=== PATIENT | male | born 1975 | race Caucasian/White ===

== ENCOUNTER 2021-01-26 10:36 | Outpatient (REF) | payer OTHER, SELFPAY | END 2021-01-26 10:37 | disposition home or self-care (01) | LOC: HO.HMGCLDS 10:36 | PROVIDERS: Visit Provider Internal Medicine | DX: Z20.822 Contact with and (suspected) exposure to COVID-19 (principal) | CPT/HCPCS: U0003; U0005 ==

== ENCOUNTER → 2023-07-27 10:29 | Outpatient (BNVA) | payer OTHER, SELFPAY | PROVIDERS: Visit Provider Physician Assistant Medical | DX: M77.11 Lateral epicondylitis, right elbow (principal) | CPT/HCPCS: 99202 ==

== ENCOUNTER 2023-08-17 07:30 | Outpatient (RCR) | payer OTHER, SELFPAY ==
--- NOTE | 2023-08-17 10:16 | MHC.OT.DC ---
[address] [phone] F: [phone] Occupational Therapy Discharge Note Patient Name: Patrick Elkins Provider: Marta Adams PA-C Diagnosis: Right lateral epicondylitis Date of Evaluation: 07/29/23 Date of Discharge: 08/17/23 Treatments to Date: 6 Discharge Status: Independent with HEP Patient Elected to Stop Discharge Summary: Patrick was referred to OT w/ right lateral epicondylitis. He continues to have moderate pain in right lateral elbow, with some relief, but no significant gains with trial of dexamethasone or ultrasound over the past few weeks. 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 He is wearing CFB at work and has good follow through w/ HEP and good understanding of joint protection. At this time, worker's comp has denied claim as work injury and he declines continuing therapy therapy his personal insurance. I recommend cont w/ home program and goal of self management, he will reach out for further referrals if still w/ persistent pain after a couple months. Electronically Signed By: WENDI Glasgow/Lionel CHT Reviewed/agree with student documentation: Therapist: Please Sign and return to therapist, thank you for your referral.
== END 2023-08-17 13:47 | disposition home or self-care (01) ==
LOC: HO.OT 07:30
PROVIDERS: PCP Physician Assistant Medical; Visit Provider Physician Assistant Medical
DX: M77.11 Lateral epicondylitis, right elbow (principal)
CPT/HCPCS: 97033; 97035; 97110; 97140; 97166

== ENCOUNTER → 2023-08-19 08:00 | Outpatient (BNVA) | payer OTHER, SELFPAY | PROVIDERS: PCP Physician Assistant Medical; Visit Provider Internal Medicine | DX: M77.11 Lateral epicondylitis, right elbow (principal) | CPT/HCPCS: 99213 ==

== ENCOUNTER → 2023-09-14 14:08 | Outpatient (BNVA) | payer OTHER, SELFPAY | PROVIDERS: PCP Physician Assistant Medical; Visit Provider Physician Assistant Medical | DX: M77.11 Lateral epicondylitis, right elbow (principal) | CPT/HCPCS: 99213 ==

== ENCOUNTER → 2023-10-15 15:34 | Outpatient (BNVA) | payer OTHER, SELFPAY | PROVIDERS: PCP Physician Assistant Medical; Visit Provider Physician Assistant Medical | DX: M77.11 Lateral epicondylitis, right elbow (principal) | CPT/HCPCS: 99213 ==

== ENCOUNTER 2023-11-06 14:30 | Outpatient (RCR) | payer OTHER, SELFPAY ==
--- NOTE | 2023-09-29 16:18 | MHC.OT.EP ---
[address] [phone] Occupational Therapy Plan of Care Patient Name: Patrick Elkins Date of Evaluation: 09/29/23 Diagnosis: Pain Location: lateral side of R elbow Pain Score: 7 Pain Scale Used: Numeric (0 - 10) Aggravating Factors: Pt reports over the head reaching/ gripping , heavy lifting Alleviating Factors: Coban wraps of R elbow Assessment: Pt is a R hand dominant male who has been experiencing pain in his R elbow since April. He was previously a pt. of our clinic and was not able to continue therapy. He has returned to skilled OT therapy for increased pain free ROM, strength, and functional use of his dominant UE. 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 Thank you once again for your referral.
--- NOTE | 2023-10-01 07:59 | MHC.OT.EP ---
[address] [phone] Occupational Therapy Plan of Care Patient Name: Patrick Elkins Date of Evaluation: 09/29/23 Diagnosis: Pain Location: lateral side of R elbow Pain Score: 7 Pain Scale Used: Numeric (0 - 10) Aggravating Factors: Pt reports over the head reaching/ gripping , heavy lifting Alleviating Factors: Coban wraps of R elbow Assessment: Pt is a R hand dominant male who has been experiencing pain in his R elbow since April. He was previously a pt. of our clinic and was not able to continue therapy. He has returned to skilled OT therapy for increased pain free ROM, strength, and functional use of his dominant UE. 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 Thank you once again for your referral.
== END 2023-11-06 15:14 | disposition home or self-care (01) ==
LOC: HO.OT 14:30
PROVIDERS: PCP Physician Assistant Medical; Visit Provider Physician Assistant Medical
DX: M77.11 Lateral epicondylitis, right elbow (principal)
CPT/HCPCS: 97110; 97140; 97165

== ENCOUNTER → 2023-11-09 10:49 | Outpatient (BNVA) | payer OTHER, SELFPAY | PROVIDERS: PCP Physician Assistant Medical; Visit Provider Physician Assistant Medical | DX: M77.11 Lateral epicondylitis, right elbow (principal) | CPT/HCPCS: 99213 ==

== ENCOUNTER 2023-11-13 19:20 | Outpatient (REF) | payer OTHER, SELFPAY ==
--- NOTE | ~2023-11-13 | MR_ITS ---
EXAMINATION: MR ELBOW WITHOUT CONTRAST, RIGHT CLINICAL INFORMATION: Persistent right lateral epicondylitis. COMPARISON: None available. TECHNIQUE: MRI of the elbow was performed using routine sequences on a high-field scanner. FINDINGS: LIGAMENTS: Ulnar Collateral Ligament: Intact. Radial Collateral Ligament: The radial collateral ligament is mildly edematous posteriorly, potentially due to a mild sprain. No discrete tears. TENDONS AND MUSCLES: Common Flexor: Intact. Common Extensor: Moderate tendinosis at the origin without an appreciable surfacing tear. Biceps: Intact. Brachialis: Intact. Triceps: Intact. BONE and ARTICULAR CARTILAGE: Small chondral fissure at the trochlear ridge. Articular cartilage is otherwise normal. Marrow signal is normal. No fracture or malalignment. NERVES: Ulnar nerve is normal in appearance. JOINT FLUID: No effusion or loose body. SOFT TISSUES: Unremarkable. MR/MR elbow RT wo con IMPRESSION: 1. Moderate common extensor tendinosis. No tears. 2. Mild edema signal in the radial collateral ligament could be due to a sprain or reactive edema related to the overlying tendinosis. 3. Small chondral fissure at the trochlear ridge.
== END 2023-11-13 19:21 | disposition home or self-care (01) ==
LOC: HO.MRI 19:20
PROVIDERS: PCP Physician Assistant Medical; Visit Provider Internal Medicine
DX: M77.11 Lateral epicondylitis, right elbow (principal)
CPT/HCPCS: 73221

== ENCOUNTER → 2023-12-01 14:14 | Outpatient (BNVA) | payer OTHER, SELFPAY | PROVIDERS: PCP Physician Assistant Medical; Visit Provider Physician Assistant Medical | DX: M77.11 Lateral epicondylitis, right elbow (principal) | CPT/HCPCS: 99213 ==

== ENCOUNTER 2024-08-20 09:17 | Outpatient (AMB) | payer OTHER, SELFPAY ==
--- OUTSIDE RECORDS SUMMARY | 2024-08-20 09:19 | XMS_ITS | Clinical Summary ---
Author Organization [facility] Address [address] [place] [address] Care Team Providers Care Fiscal Officer Name Role Phone Main Story Primary Care Provider [phone] Allergies Active Allergy Reactions Criticality Noted Date Comments Other 02/09/2012 Medications multivitamin (MULTIPLE VITAMINS ORAL) Take by mouth. Active albuterol HFA (PROAIR HFA ; PROVENTIL HFA ; VENTOLIN HFA) 90 mcg/actuation inhaler Inhale 2 Puffs into the lungs every 4 hours as needed for Cough or Wheezing. 11/09/19 22 Active amitriptyline (ELAVIL) 25 mg tablet Take 1 Tablet by mouth at bedtime. 01/18/20 24 Active aspirin-acetamin ophen-caffeine (EXCEDRIN MIGRAINE) 250-250-65 mg per tablet Take 1 tablet by mouth every 6 (six) hours if needed. Active beclomethasone dipropionate (Qvar RediHaler) 80 mcg/actuation HFA aerosol breath activated inhaler Inhale 2 Puffs into the lungs 2 times daily. Active buPROPion XL (WELLBUTRIN XL) 150 mg 24 hr tablet Take 1 tablet (150 mg total) by mouth 1 (one) time each day in the morning. 03/07/20 24 Active butalbital-aceta minophen-caffein e 50-300-40 mg capsule Take by mouth. Active cetirizine (ZyrTEC) 10 mg tablet Take 1 tablet (10 mg total) by mouth 1 (one) time each day. 03/08/20 24 Active cholecalciferol (VITAMIN D-3) 50 mcg (2,000 unit) tablet Take 1 tablet (2,000 Units total) by mouth 1 (one) time each day. 01/18/20 24 Active citalopram (CeleXA) 40 mg tablet Take 1 tablet (40 mg total) by mouth 1 (one) time each day in the morning. 10/13/19 24 Active diclofenac (VOLTAREN) 1 % topical gel Apply 1 g topically 2 times daily. 07/09/19 24 Active divalproex (DEPAKOTE ER) 250 mg 24 hr tablet 06/03/19 24 Active fluticasone propionate (FLONASE) 50 mcg/actuation nasal spray 1 pump in each nostril each morning 02/25/20 23 Active lidocaine (LIDODERM) 5 % patch APPLY 1 PATCH TOPICALLY ONCE DAILY. LEAVE ON THE MOST PAINFUL AREA ONCE DAILY FOR UP TO 12 HOURS 09/14/19 24 Active rizatriptan (MAXALT) 10 mg tablet 09/16/19 24 Active tiZANidine (ZANAFLEX) 2 mg tablet Take 1 Tablet by mouth every 8 hours as needed for Other (pain/ spasm). 07/16/19 23 Active tiZANidine (ZANAFLEX) 4 mg capsule Take 1 Capsule by mouth 3 times daily. Active albuterol HFA (PROAIR HFA ; PROVENTIL HFA ; VENTOLIN HFA) 90 mcg/actuation inhaler Inhale 2 puffs by mouth every 6 (six) hours if needed for wheezing or shortness of breath. 1 each 05/09/20 24 025 Active omeprazole (PriLOSEC) [address] capsule TAKE 1 CAPSULE BY MOUTH TWO TIMES A DAY BEFORE BREAKFAST AND DINNER ON EMPTY STOMACH AND WAIT 30 MINUTES BEFORE EATING 180 capsule 2 08/17/19 25 Active omeprazole (PriLOSEC) [address] capsule Take 1 Capsule by mouth 2 times daily (before meals). Take on empty stomach, wait 30 minutes and then eat to activate medication-be fore breakfast and before dinner 08/14/19 24 025 Discontinued Active Problems Problem Noted Date Diagnosed Date Varicose veins of both lower extremities 022 Anxiety and depression 09/08/2019 Diffuse nontoxic goiter 06/10/2019 Overview (03/28/2024): S/p US 05/2019 Vitamin D insufficiency 06/04/2019 Internal hemorrhoid 06/03/2019 Overview (03/28/2024): S/p CNSP 2019 Normocytic anemia 12/08/2017 Allergic rhinitis 06/04/2017 Chronic sinusitis 06/04/2017 Lumbar disc herniation with radiculopathy 2006 Overview (03/28/2024): Follows with physiatry Migraine 09/11/2006 Overview (03/28/2024): Ct Head 04/29/02, [facility] un[facility]able, sinus CT remarkable for sinusitis left maxillary and thickening right maxillary sinus Follows with [facility] Neurology Encounters Date Type Department Care Team Description 06/02/2024 Telephone Pulmonol - [place] [address] [facility] [address] [place] [address] Christine England MD Prior authorization 05/24/2024 Telephone Adult Medicine [address] [phone] Leda Whitman MA Prior Authorization (Bupropion ER 150mg) from Last 3 Months Immunizations Name Administration Dates Next Due Anthrax 12/30/2003, 4,09/23/2002,04/16,09/28/1999,09/14/1999 DTP 07/09/1977 Hepatitis A Adult (Havrix; V aqta) 19yo and older 01/04/2000,05/18/1999 Hepatitis B (Lwxxhzd-P-Htpln , Recombivax HB-Adult) 19yo and older 05/22/2012,12/20/2011,08/11/2011 Influenza Quadravalent, MDCK , 0.5ml, preservative free (Flucelvax) 6mo and older 02/24/2023 Influenza trivalent, 0.5mL, preservative free (Fluarix; FluLaval; Fluzone) ages 6mo and older (Afluria) 3 years and older 03/12/2013,04/19/2010 MMR, measles mumps and rubel la Live (Priorix; M-M-R II) 12mo and older 03/11/1990,05/11/1975 Meningococcal MCV4P 09/15/1999 Moderna SARS-CoV-2 COVID-19, mRNA, LNP-S, preservative free 08/19/2020,07/22/2020 OPV 11/08/1992,07/09/1977 PPD Test 11/08/1984 Pfizer SARS-CoV-2 COVID-19, mRNA, LNP-S, preservative free 07/21/2021 Smallpox 07/17/2002 Td Tetanus diptheria (Tdvax) 7yo and older 12/20/2011,10/09/1998,11/08/1992,11/08 Typhoid VICPS (Typhim Vi) 2y o and older 12/30/2003,10/30/2001,09/14/1999,10/09 Yellow Fever (YF-VAX) 9mo and older 08/09/1993 Surgical History Surgery Date Site/Laterality Comments HAND SURGERY PROCEDURE: HISTORICAL HAND SURGERY; COMMENT: right z plasty VASECTOMY PROCEDURE: NV VASECTOMY UNI/BI SPX W/POSTOP SEMEN EXAMS OTHER SURGICAL HISTORY Right PROCEDURE: ARTHROSCOPY SHOULDER SURGI COLONOSCOPY 02/15/2018 PROCEDURE: HISTORICAL COLONOSCOPY; COMMENT: normal OTHER SURGICAL HISTORY PROCEDURE: OUTSIDE ENDOSCOPY; COMMENT: dr. parra normal Medical History Medical History Date Comments Allergic rhinitis 06/04/2017 DX:Allergic rh initis Chronic sinusitis 06/04/2017 DX:Chronic sin usitis Migraine 09/11/2006 DX:Migraine; COM MENT: Ct Head 04/29/02, [facility], sinus CT remarkable for sinusitis left maxillary and thickening right maxillary sinus Follows with [facility] Lumbar disc herniation with radiculopathy 09/11/2006 DX:Lumbar disc herniation wi th radiculopathy; COMMENT: Follows with physiatry Normocytic anemia 12/08/2017 DX:Normocytic anemia History of COVID-19 03/07/2022 DX:History o f COVID-19 Esophageal reflux DX:Esophageal reflux Family History Medical History Relation Name Comments Breast cancer Aunt maternal Diabetes Father Hyperlipidemia Father HTN Other: skin cancer Father Other: thyroid cancer Father Breast cancer Maternal Grandmother Hyperlipidemia Mother HTN Other: smoker Paternal Grandmother Autoimmune disease Neg Hx Colon cancer Neg Hx Coronary artery disease Neg Hx Heart attack Neg Hx Heart failure Neg Hx Hyperlipidemia Neg Hx Hypertension Neg Hx Mental illness Neg Hx Prostate cancer Neg Hx Sleep apnea Neg Hx Thyroid disease Neg Hx Relation Name Status Comments Aunt Brother 1 Alive healthy Brother 2 Alive lactose intoler ance Daughter 1 Alive healthy Daughter 2 Alive healthy Father Alive DM, thyroid can cer age 73 Maternal Grandfather cancer unknown Maternal Grandmother Alive breast cancer, bypass Mother Alive healthy Paternal Grandfather Paternal Grandmother lung ca ncer Social History Tobacco Use Types Packs/Day Years Used Date Smoking Tobacco: Never Smokeless Tobacco: Never Tobacco Cessation:Counseling Given: Not Answered Alcohol Use Standard Drinks/Week Comments Yes 0 (1 standard drink = 0.6 oz pur e alcohol) Sex and Gender Information Value Date Recorded Sex Assigned at Not on file Legal Sex Male 5:39 PM EST Gender Identity Not on file Sexual Orientation Not on file Obstetrics History Last Filed Vital Signs Vital Sign Reading Time Taken Comments Blood Pressure 96/65 05/09/2024 8:19 AM EST Pulse 88 05/09/2024 8:19 AM EST Temperature 35.7 ??C (96.3 ??F) 05/09/2024 8:19 AM ES T Respiratory Rate 18 05/09/2024 8:19 AM EST Oxygen Saturation 98% 05/09/2024 8:19 AM EST Inhaled Oxygen Concentration - - Weight 81.6 kg (180 lb) 05/09/2024 8:19 AM EST Height 177.8 cm (5' 10 ) 05/09/2024 8:19 AM EST Body Mass Index 25.83 05/09/2024 8:19 AM EST Plan of Treatment Upcoming Encounters Date Type Department Care Team (Late st Contact Info) Description 09/15/2024 1:00 PM EDT Office Visit Pulmonolgy - [place] [facility] [address] [place] [phone] Christine England MD [address] [address] Health Maintenance Due Date Last Done Comments IPV Vaccines (3 of 3 - 4-dose series) 05/11/1993 11/08/1992, 07/09/1977 Depression Screening 04/12/2020 HIV Screening 04/12/2020 Social Influencers of Health Screening 04/12/2020 Pneumococcal Vaccine: 50+ Years (1 of 1 - PCV) 2023 Zoster Vaccines (2 of 2) 08/10/2023 06/15/2023 COVID-19 Vaccine (4 - season) 2024 07/21/2021, 08/19/2020, 07/22/2020 Cholesterol Screening (Lipid Panel) 04/30/2026 04/30/2021 Colorectal Cancer Screening: Colonoscopy 02/16/2028 02/15/2018 DTaP,Tdap,and Td Vaccines (9 - Td or Tdap) 07/22/2031 07/21/2021, 12/20/2011, 12/20/2011, Additional history exists MMR Vaccines Completed 03/11/1990, 05/11/1975 Meningococcal ACWY Vaccine Aged Out 09/15/1999 N o longer eligible based on patient's age to complete this topic Hepatitis A Vaccines Aged Out 01/04/2000, 05/18/19 00 No longer eligible based on patient's age to complete this topic Hepatitis B Vaccines Completed 05/22/2012, 12/20/2011, 10/20/2011, Additional history exists Hepatitis C Screening Completed 02/24/2023 Influenza Vaccine Completed 01/19/2024, , 02/20/2021, Additional history exists HIB Vaccines Aged Out No longer eligi ble based on patient's age to complete this topic HPV Vaccines Aged Out No longer eligi ble based on patient's age to complete this topic Meningococcal B Vaccine Aged Out No l onger eligible based on patient's age to complete this topic Pneumococcal Vaccine: Pediatrics (0 to 5 Years) and At-Risk Patients (6 to 64 Years) Aged Out No longer eligible based on patient's age to complete this topic RSV Immunization Patients Under 20 months Aged Out No longer eligible based on patient's age to complete this topic Varicella Vaccines Aged Out No longer eligible based on patient's age to complete this topic Procedures Procedure Name Priority Date/Time Associated Diagnosis Comments HM HEPATITIS C SCREENING Routine 02/24/2023 LIPID PANEL Routine 04/30/2021 COLONOSCOPY Routine 02/15/2018 from Last 3 Months or Most Recently Relevant to Health Maintenance Results * Hepatitis C Screening (02/24/2023) Pathologist [facility] Hepatitis C Screening abstracted [facility] Provider HEALTH MAINTENANCE Final Result * (ABNORMAL) Lipid panel (04/30/2021) [facility] LDL/HDL Ratio 6(A) <=4 Triglycerides 257(A) <=150 mg/dL Cholesterol 170 <=200 mg/dL HDL 27(A) >=39 mg/dL LDL Cholesterol 92 <=100 mg/dL Blood Venous blood specimen / Unknown [facility] Provider LAB BLOOD ORDERABLES Shahida l Result * Colonoscopy (02/15/2018) Pathologist [facility] Colonoscopy no interpretation , abstracted Anatomical Region Laterality Modality Other [facility] Provider HEALTH MAINTENANCE Final Result from Last 3 Months or Most Recently Relevant to Health Maintenance Insurance [facility] Care Teams Fiscal Officer Relationship Specialty Start Date End Date Main Story PA [address] [place] [id number] PCP - General Internal Medicine 09/13/20
--- OUTSIDE RECORDS SUMMARY | 2024-08-20 09:19 | XMS_ITS | Data Portability ---
Author Organization [facility], [facility] Address [address] [place] [address] Care Team Providers Care Patrol Community Service Officer Name Role Phone SIERRANEYDA Timmons Primary Care Provider JEROMY CATHERINE First Coat Operator Assessment No assessment recorded. Plan of Treatment Reminders Order Date Submit Date Provider Last Modified By Organization Details Last Modified Time Details Appointments None recorded. Lab None recorded. Referral occupatio nal therapist referral - RIGHT LATERAL EPICONDYL AR DEBRIDEME NT SX 04/19/24A CTIVE ROM AVOID STRAINING OF ELBOW 2023 024 [email or web address] Not available 11:10:59 Procedures None recorded. Surgeries None recorded. Imaging None recorded. Medication Orders None recorded. Patient TargetsNo targets recorded. Patient InstructionsNo instructions recorded. Reason for Referral Occupational Therapist Refer ral for Lateral epicondylitis of right humerus RIGHT LATERAL EPICONDYLAR DEBRIDEMENT SX 04/19/24ACTIVE ROM AVOID STRAINING OF ELBOW Referring Physician: Kimberly Felder, Orthopedic Surgery, Encounter Date: 04/29/2024 Procedures Surgical History Date Name Laterality Status Provider Name and Address Organization Details Recorded Time 04/19/20 Elbow Surgery completed RICHELLE FORRESTER [facility] 06/29/2024 10:15:40 12/14/19 24 JZCelestone Lat Epi completed Kj Self MD [address] [facility] [address], [place], [address], [facility] 12/16/2023 07:57:51 11/22/19 Shoulder Surgery completed RICHELLE FORRESTER [facility] 06/29/2024 10:15:40 Hand Surgery completed RICHELLE FORRESTER [place] [facility] [place] [facility] 06/29/2024 10:15:40 Imaging Results None recorded. Procedure Notes None recorded. Medical Equipment None Reported. Allergies No known drug allergies Medications Name Sig Start Date Stop Date Status Note LastModified by Organization Details LastModified Time verapamil ER (SR) 120 mg tablet,extend ed release TAKE 1 TABLET BY MOUTH EVERY DAY FOR 90 DAYS active Not Available Not Available No t Available citalopram 40 mg tablet active Not Available Not Available No t Available rizatriptan 10 mg tablet TAKE 1 TABLET BY MOUTH ONCE DAILY active Not Available Not Available No t Available butalbital-ac etaminophen-c affeine 50 mg-325 mg-40 mg tablet active Not Available Not Available No t Available amitriptyline 25 mg tablet TAKE 1 TABLET BY MOUTH AT BEDTIME active Not Available Not Available No t Available lidocaine 5 % topical patch APPLY 1 PATCH TOPICALLY ONCE DAILY. LEAVE ON THE MOST PAINFUL AREA ONCE DAILY FOR UP TO 12 HOURS active Not Available Not Available No t Available omeprazole 20 mg capsule,delay ed release active Not Available Not Available N ot Available albuterol sulfate HFA 90 mcg/actuation aerosol inhaler INHALE 2 PUFFS BY MOUTH EVERY 6 HOURS NEEDED FOR WHEEZING OR SHORTNESS OF BREATH active Not Available Not Available No t Available oxycodone 5 mg tablet Take 1 tablet every 6 hours by oral route as needed for 3 days. active Not Available Not Available No t Available divalproex ER 250 mg tablet,extend ed release 24 hr TAKE 1 TABLET BY MOUTH ONCE DAILY FOR 10 DAYS active Not Available Not Available No t Available bupropion HCl XL 150 mg 24 hr tablet, extended release TAKE 1 TABLET BY MOUTH ONCE DAILY IN THE MORNING active Not Available Not Available No t Available tizanidine active Not Available Not Av ailable Not Available Depakote active Not Available Not Avai lable Not Available Breo Ellipta 100 mcg-25 mcg/dose powder for inhalation INHALE 1 PUFF BY MOUTH ONCE DAILY active Not Available Not Available No t Available Qvar RediHaler 80 mcg/actuation HFA breath activated aerosol INHALE 2 PUFFS BY MOUTH TWICE DAILY active Not Available Not Available No t Available Paxlovid 300 mg (150 mg x 2)-100 mg tablets in a dose pack TAKE 3 TABLETS BY MOUTH TWICE A DAY FOR 5 DAYS active Not Available Not Available No t Available Vitals Date Recorded Body height Body mass index (BMI) Body weight Provider Name and Address Organization Details Last Updated DateTime 2024 177.8 cm 25.1 kg/m2 73822.66 g MELLISSANAHOMY COXALON [facility] 2024 13:36:54 Date Recorded Body height Body mass index (BMI) Body weight Provider Name and Address Organization Details Last Updated DateTime 03/18/2024 177.8 cm 25.1 kg/m2 31181.66 g RICHELLE FORRESTER [facility] 03/18/2024 14:16:18 Date Recorded Body height Body temperature Body mass index (BMI) Body weight Provider Name and Address Organization Details Last Updated DateTime 04/29/2024 177.8 cm 98.3 [degF] 25.1 kg/m2 75174.66 g KHANH CARROLL [facility] 04/29/2024 09:22:04 Date Recorded Body height Body mass index (BMI) Body weight Provider Name and Address Organization Details Last Updated DateTime 06/29/2024 177.8 cm 25.1 kg/m2 08570.66 g RICHELLE FORRESTER [facility] 06/29/2024 10:15:47 Date Recorded Body height Body mass index (BMI) Body weight Provider Name and Address Organization Details Last Updated DateTime 07/29/2024 177.8 cm 25.1 kg/m2 28860.66 g RICHELLE FORRESTER [facility] 07/29/2024 11:21:58 Social History Question Answer Notes LastModified by Organizat ion Details LastModified Time Tobacco Smoking Status Never Smoker RICHELLE chung [facility] 06/29/2024 10:15:40 How Many Times Per Week Do You Consume Alcohol? Less Than 1 Time Per Week [email or web address] Information not available 06/29/2024 Do You Or Have You Ever Used E-cigarettes Or Vape? Never Used Electronic Cigarettes [email or web address] Information not available 06/29/2024 What Is Your Relationship Status? [email or web address] Information not available 06/29/2024 Do You Use Any Illicit Or Recreational Drugs? No [email or web address] Information not available 06/29/2024 Do You Or Have You Ever Used Any Other Forms Of Tobacco Or Nicotine? No [email or web address] Information not available 06/29/2024 Sex: Unknown Functional Status None recorded. Mental Status None recorded. Family History Nothing Reported. Medical History No medical history recorded. Past Encounters Encounter ID Performer Location Encounter Start Date Encounter Closed Date Diagnosis/Indication Diagnosis SNOMED-CT Code Diagnosis ICD10 Code Diagnosis Note [id number] Kj Self MD [facility] [address] [place] [address] 12/14/2023 14:26:37 01/08/2024 09:57:48 Pain of right elbow joint 1772172933 8853540 M25.521 Lateral ep icondylitis of right humerus 4420925583 81227 M77.11 [id number] Abhinav Stahl PA-C [facility] [address] [place] [address] 2024 13:25:00 03/04/2024 09:32:36 [id number] Kj Self MD [facility] [address] [place] [address] 03/18/2024 14:08:29 04/17/2024 17:02:36 Lateral epicondylitis of right humerus 7284684455 97072 M77.11 [id number] Kimberly Felder, [facility] [address] [place] [address] 04/29/2024 08:54:44 05/24/2024 11:10:59 Lateral epicondylitis of right humerus [id number] 78321 M77.11 [id number] Kj Self MD [facility] [address] [place] [address] 06/29/2024 09:47:41 07/20/2024 16:46:35 Lateral epicondylitis of right humerus [id number] 06724 M77.11 [id number] Kj Self MD [facility] [address] [place] [address] 07/29/2024 11:10:09 08/17/2024 14:59:30 Lateral epicondylitis of right humerus 1479684493 05345 M77.11 Health Concerns Section Related Observation LastModified by Organization Detai ls LastModified Time None Recorded Concern Status LastModified by Organization Details LastModified Time None Recorded Advance Directives Directive None Recorded Payers Encounter Date Sequence Insurance Name Policy Number Policy Arce Covered Member ID Arce Member ID Guarantor Name [id number] [employer] - [employer]IC Garcia Queenie Elkins 03/18/2024 [employer] Arms Patrick Elkins 06/29/2024 [employer] Patrick Elkins 07/29/2024 [employer] Patrick Elkins Notes Date Note Type Note Provider Name and Address Organization Details Recorded Time 2024 text/html I am seeing the patient today under the supervision of dr noble who was available but who did not see the patient. DX: Right Lateral epicondylitis s/p cortisone injection 12/14/2023ortisone injectioin at [facility] 05/2023 HPI: 48-year-old male returns for reexamination. He last received a cortisone injection on December 14, [address] Self. This helped for 2 weeks. He continues to have pain with lifting pulling and pushing. He has performed physical therapy without relief in the past. Anti-inflammatories are ineffective. We did discuss PRP injections. Not sure if Worker's Compensation covers those injections. He will check. Ultimately is thinking about proceeding with the lateral epicondylar debridement Past family, medical, social history and review of systems has been reviewed, updated and is located in the patient? s chart. Examination: Alert and oriented ? ? 3 . No acute distress. Nonantalgic gait.Right Elbow reveals no soft tissue swelling. The patient is tender over the lateral epicondyle. Lateral elbow pain with wrist extension, resisted wrist extension and resisted forearm supination. No Tenderness medially or over the olecranon process. Left elbow ROM full. Full pronation/supination. No evidence of varus/valgus instability. No radiocapitellar crepitus. No medial or lateral epicondylar tenderness. No evidence for effusion, no evidence of mechanical symptoms or locking. Intact median, radial and ulnar nerve both motor and sensory function. Negative Tinel at the level of the elbow. X-rays ordered, obtained and reviewed at [facility] Impression/Plan: Findings and situation were discussed with the patient. Treatment options were discussed. Patient is going to check with Worker's Compensation to see if they cover PRP injections. If not he would like to proceed with a left lateral patellar debridement. He will continue with work restrictions. Abhinav Stahl PA-C [address], [place], [address], [facility] 2024 13:53:58 03/18/2024 text/html Diagnosis: Right lateral epicondylitisThe patient presents at his request. He continues to have pain over his right lateral elbow with grasp. The pain is sharp and moderate in severity. He has no numbness or tingling.Past family, medical, social history and review of systems has been reviewed, updated and is located in the patient? s chart.Examination: Healthy appearing patient in no apparent distress. Alert and oriented. Tender to palpation over his right lateral epicondyle. Pain in this region with resisted wrist extension with the elbow extended and flexed. No atrophy in either upper extremity. Brisk capillary refill in all digitsPlan: At the patient's request we discussed the nature of the surgery for lateral epicondylitis and risks including infection, injury to blood vessels, tendons, nerves, failure of procedure and stiffness in the elbow. All his questions are answered. He would like to proceed with a right lateral epicondylar debridement. Kj Self MD [address], [place], [address], [facility] 03/18/2024 15:12:46 04/29/2024 text/html Patrick is a 49-yea r-old who is here today for follow-up status post right lateral epicondylar debridement done by Dr. Self 04/19/2020 for overall he is progressing nicely good pain she is here today for follow-up Kimberly Felder CNP [address], [place], [address], [facility] 04/29/2024 10:12:54 06/29/2024 text/html Diagnosis: Statu s post right lateral epicondylar debridement The patient returns at our request. He is disappointed in the results of his surgery. He continues to have pain over his lateral elbow although improved from his preoperative status. Past family, medical, social history and review of systems has been reviewed, updated and is located in the patient? s chart. Examination: Healthy appearing patient in no apparent distress. Alert and oriented. He has full range of motion bilateral elbows and forearms. Provocative testing of both elbows reveals no instability. He does have discomfort with resisted wrist extension with the elbow extended. No atrophy in either upper extremity. Brisk capillary refill in all digits Plan: The patient and I discussed his situation at length. As he was working prior to his surgery and feels that he is somewhat better since his surgery I am puzzled by his assertion that he cannot work at all. We have agreed to return him to restricted duty while he continues his therapy. He will follow-up in 4 to 6 weeks for reevaluation or sooner if there are any concerns. Kj Self MD [address] [address], [place], [address], [facility] 07/04/2024 09:40:25 07/29/2024 text/html Diagnosis: Statu s post right lateral epicondylar debridement The patient returns at our request. He reports that he has had a dramatic improvement in his situation and is ready to return to full duty work. Past family, medical, social history and review of systems has been reviewed, updated and is located in the patient? s chart. Examination: Healthy appearing patient in no apparent distress. Alert and oriented. He has symmetric range of motion of his bilateral elbows and forearms. Provocative test the elbows reveals no instability. He has no pain with resisted wrist extension with the elbow extended. No atrophy in either upper extremity. Brisk capillary refill in all digits Plan: The patient has done well. I am returning him to full duty work and discharging him from care. He will follow-up at his discretion. Kj Self MD [address] [facility] [address], [place], [address], [facility] 07/29/2024 12:41:34
--- NOTE | 2024-08-20 10:11 | AM.OFFWIN_ITS ---
Intake Vital Signs 08/20/24 10:25 Height 5 ft 10 in Weight 180 lb BMI 25.8 BP 120/76 Blood Pressure Location Lt brachial Position Sitting Pulse 120 H Pulse Source Pulse Oximeter Temp 99.0 F Temp Source Oral Pulse Oximetry (%) 95 Oxygen Delivery Method Room Air Intake Visit Reasons: [employer] WORK[employer] Flu? Patient Tobacco Use Status: Never used Tobacco Allergies No Known Allergies Allergy (Verified 08/20/24 10:24) Do you need a note to return to daycare/school/sports/work: Yes HPI HPI Comments History of Present Illness Details Patrick presents with flu-like symptoms that started yesterday, including persistent cough, back pain, headache, and fever. He reports feeling like garbage and believes he may have the flu or possibly something worse. The patient's cough has been ongoing for a while, previously attributed to post- nasal drip, but has significantly worsened. The cough is sometimes productive and has become so severe that it has led to dry heaves and vomiting. Patrick mentions experiencing back pain, specifically in the kidney area, describing it as feeling like Torres Renee's been using it as a punching bag. He also complains of a pounding headache and reports that the back of his neck feels sweaty and clammy. Patrick has attempted to alleviate his symptoms with [id number] medications, including Tylenol, cold and flu medicine, and Nyquil, but states these have not been effective. His temperature was reported as 99?F, and his blood pressure was measured at 120/70-something, which he notes is higher than his usual readings of 90-something/70-something. The patient took a home COVID test yesterday, which was negative. He mentions experiencing some wheezing when breathing deeply. Patrick's symptoms appear to be impacting his overall well-being, as he emphasizes feeling unwell and describes his condition as garbage. PFSH Social History Patient Tobacco Use Status: Never used Tobacco Review of Systems Const Reports fatigue, Reports fever(s), Reports headache(s) and Reports malaise ENT Reports headache(s) Resp Reports chest congestion and Reports cough Neuro Reports headache(s) Endo Reports fatigue Physical Exam Vital Signs: Last Vital Signs Temp 99.0 F 08/20/24 10:25 Pulse 120 H 08/20/24 10:25 BP 120/76 08/20/24 10:25 Pulse Ox 95 08/20/24 10:25 Oxygen Delivery Method Room Air 08/20/24 10:25 BMI result Body Mass Index 25.8 Const General: cooperative, no acute distress and alert Orientation/consciousness: patient oriented x3 Limitations: no limitations HEENT Head: Yes normal to inspection Ears: hearing grossly normal bilaterally and external ears normal General nose exam: Normal external nose present Eyes General: appearance normal, both eyes and all related structures Neck Neck: Yes normal visual inspection Chest Chest palpation & inspection: normal inspection of the chest Resp Effort & Inspection: normal respiratory effort, able to speak in complete sentences and no audible wheezes Auscultation: clear to auscultation bilaterally Cardio Rate: regular rate Rhythm: regular rhythm GI Inspection: Yes normal to inspection Palpation (GI): Soft to palpation and nontender Skin General skin exam: no rashes or lesions noted Neuro General: patient oriented x3 Psych Appearance: grossly normal Mental Status: mental status grossly normal Speech and movement: Normal speech and movement present Affect: normal affect Attitude: cooperative Thought process: Normal thought process present Thought content: Normal thought content present Assessment & Plan Assessment & Plan (1) Flu-like symptoms: Code(s): R68.89 - Other general symptoms and signs Plan: Suspected Influenza: - Acute onset of flu-like symptoms including persistent cough, back pain, headache, and low-grade fever (99?F) - Symptoms started yesterday - History of chronic cough attributed to post-nasal drip, but current symptoms significantly worse - Home COVID-19 test negative yesterday - Physical examination revealed wheezing on auscultation - Blood pressure elevated at 120/70s, higher than usual 90s/70s - Clinical presentation consistent with influenza despite negative home COVID-19 test and lack of flu testing Plan: - Prescribe oseltamivir 75 mg PO BID for treatment of suspected influenza - Prescribe Tessalon Perles for cough management - Provided patient education on warning signs and symptoms - Follow up as needed if symptoms worsen or persist Medications: New oseltamivir 75 mg PO BID 10 caps 0RF 5 days benzonatate 200 mg PO TID 9 caps 0RF 3 days Coding Level of Care Code New Pt Level 4 (09808) Diagnoses Flu-like symptoms R68.89
[2024-08-20 10:25] VITALS: BP 120/76; PULSE 120; TEMP 37.2; O2SAT 95; BMI 25.8
== END 2024-08-20 10:58 | disposition home or self-care (01) ==
PROVIDERS: PCP Physician Assistant Medical; Visit Provider Physician Assistant
DX: R68.89 Other general symptoms and signs (principal)

== ENCOUNTER → 2024-08-20 09:17 | Outpatient (BNVA) | payer OTHER, SELFPAY | PROVIDERS: PCP Physician Assistant Medical | DX: Z13.89 Encounter for screening for other disorder (principal) ==

== ENCOUNTER 2025-02-20 08:46 | Outpatient (AMB) | payer OTHER, SELFPAY ==
--- OUTSIDE RECORDS SUMMARY | 2025-02-20 08:50 | XMS_ITS | Clinical Summary ---
Author Organization [facility] Address [address] [place] [address] Care Team Providers Care Poultry Packer Name Role Phone Main Story Primary Care Provider [phone] Allergies Active Allergy Reactions Criticality Noted Date Comments Other 02/09/2012 Medications multivitamin (MULTIPLE VITAMINS ORAL) Take by mouth. Active albuterol HFA (PROAIR HFA ; PROVENTIL HFA ; VENTOLIN HFA) 90 mcg/actuation inhaler Inhale 2 Puffs into the lungs every 4 hours as needed for Cough or Wheezing. 2 Active amitriptyline (ELAVIL) 25 mg tablet Take 1 Tablet by mouth at bedtime. 4 Active aspirin-acetamino phen-caffeine (EXCEDRIN MIGRAINE) 250-250-65 mg per tablet Take [...] (one) time each day in the morning. 4 Active butalbital-acetam inophen-caffeine 50-300-40 mg capsule Take by mouth. Activ e cetirizine (ZyrTEC) 10 mg tablet Take 1 tablet (10 mg total) by mouth 1 (one) time each day. 4 Active cholecalciferol (VITAMIN D-3) 50 mcg (2,000 unit) tablet Take 1 tablet (2,000 Units total) by mouth 1 (one) time each day. 4 Active citalopram (CeleXA) 40 mg tablet Take 1 tablet (40 mg total) by mouth 1 (one) time each day in the morning. 4 Active diclofenac (VOLTAREN) 1 % topical gel Apply 1 g topically 2 times daily. 4 Active divalproex (DEPAKOTE ER) 250 mg 24 hr tablet 4 Active fluticasone propionate (FLONASE) 50 mcg/actuation nasal spray 1 pump in each nostril each morning 3 Active lidocaine (LIDODERM) 5 % patch APPLY 1 PATCH TOPICALLY ONCE DAILY. LEAVE ON THE MOST PAINFUL AREA ONCE DAILY FOR UP TO 12 HOURS 4 Active rizatriptan (MAXALT) 10 mg tablet 4 Active tiZANidine (ZANAFLEX) 2 mg tablet Take 1 Tablet by mouth every 8 hours as needed for Other (pain/ spasm). 3 Active tiZANidine (ZANAFLEX) 4 mg capsule Take 1 Capsule by mouth 3 times daily. Active albuterol HFA (PROAIR HFA ; PROVENTIL HFA ; VENTOLIN HFA) 90 mcg/actuation inhaler Inhale 2 puffs by mouth every 6 (six) hours if needed for wheezing or shortness of breath. 1 each 4 05/09/20 25 Active omeprazole (PriLOSEC) [address] capsule TAKE 1 CAPSULE BY MOUTH TWO TIMES A DAY BEFORE BREAKFAST AND DINNER ON EMPTY STOMACH AND WAIT 30 MINUTES BEFORE EATING 180 capsule 2 5 Active fluticasone furoate-vilantero L (Breo Ellipta) 200-25 mcg/dose inhaler Inhale 1 puff by mouth 1 (one) time each day. 1 each 5 09/16/19 26 Active Active Problems Problem Noted Date Diagnosed Date [...] and thickening right maxillary sinus Follows with [facility] Neurology Immunizations Immunization Administration Dates Next Due Anthrax 12/30/2003, 4,09/23/2002,04/16,09/28/1999,09/14/1999 DTP 07/09/1977 Hepatitis A Adult (Havrix; V aqta) 19yo and older 01/04/2000,05/18/1999 Hepatitis B (Llrnyso-K-Zmktp , Recombivax HB-Adult) 19yo and older 05/22/2012,12/20/2011,08/11/2011 [...] free 08/19/2020,07/22/2020 OPV 11/08/1992,07/09/1977 PPD Test 11/08/1984 D2S SARS-CoV-2 COVID-19, mRNA, LNP-S, preservative free 07/21/2021 Smallpox 07/17/2002 Td Tetanus diptheria (Tdvax) 7yo and older 12/20/2011,10/09/1998,11/08/1992,11/08 Typhoid VICPS (Typhim Vi) 2y o and older 12/30/2003,10/30/2001,09/14/1999,10/09 Yellow Fever (YF-VAX) 9mo and older 08/09/1993 Surgical History Surgery Date Site/Laterality Comments HAND SURGERY PROCEDURE: HISTORICAL HAND SURGERY; COMMENT: right z plasty VASECTOMY PROCEDURE: WI VASECTOMY UNI/BI SPX W/POSTOP SEMEN EXAMS OTHER [...] Sign Reading Time Taken Comments Blood Pressure 110/76 09/15/2024 12:56 PM EDT Pulse 60 09/15/2024 12:56 PM EDT Temperature 36.3 C (97.3 F) 09/15/2024 12:56 PM EDT Respiratory Rate 18 05/09/2024 8:19 AM EST Oxygen Saturation 97% 09/15/2024 12:56 PM EDT Inhaled Oxygen Concentration - - Weight 80.4 kg (177 lb 3.2 oz) 09/15/2024 12:56 PM EDT Height 177.8 cm (5' 10 ) 09/15/2024 12:56 PM EDT Body Mass Index 25.43 09/15/2024 12:56 PM EDT Plan of Treatment Health Maintenance Due Date Last Done Comments IPV Vaccines (3 of 3 - 4-dose series) 05/11/1993 11/08/1992, 07/09/1977 HIV Screening 04/12/2020 Social Influencers of Health Screening 04/12/2020 Pneumococcal Vaccine: 50+ Years (1 of 1 - PCV) 2023 Depression Screening 05/11/2024 COVID-19 Vaccine ( - season) 2025 07/21/2021, 08/19/2020, 07/22/2020 Influenza Vaccine (#1) 2025 , 02/24/2023, 02/20/2021, Additional history exists Cholesterol Screening (Lipid Panel) 04/30/2026 04/30/2021 Colorectal Cancer Screening: Colonoscopy 02/16/2028 02/15/2018 DTaP,Tdap,and Td Vaccines (9 - Td or Tdap) 07/22/2031 07/21/2021, 12/20/2011, 12/20/2011, Additional history exists RSV Immunization Adult Patients (1 - 1-dose 75+ series) 02/06/2048 MMR Vaccines Completed 03/11/1990, 05/11/1975 Meningococcal ACWY Vaccine Aged Out 09/15/1999 N o longer eligible based on patient's age to complete this topic Hepatitis A Vaccines Aged Out 01/04/2000, 05/18/19 00 No longer eligible based on patient's age to complete this topic Hepatitis B Vaccines Completed 05/22/2012, 12/20/2011, 10/20/2011, Additional history exists Hepatitis C Screening Completed 02/24/2023 Zoster Vaccines Completed 06/30/2024, 06/15/2023 HIB Vaccines Aged Out No longer eligi [...] Procedure Name Priority Date/Time Associated Diagnosis Comments HEPATITIS C SCREENING Routine 02/24/2023 LIPID PANEL Routine 04/30/2021 COLONOSCOPY Routine 02/15/2018 from Last 3 Months or Most Recently Relevant to Health Maintenance Results * Hepatitis C Screening (02/24/2023) Hepatitis C Screening abstracted Historical Provider HEALTH MAINTENANCE Final Result * (ABNORMAL) Lipid panel (04/30/2021) LDL/HDL Ratio 6(A) <=4 Triglycerides 257(A) <=150 mg/dL Cholesterol 170 <=200 mg/dL HDL 27(A) >=39 mg/dL LDL Cholesterol 92 <=100 mg/dL Blood Venous blood specimen / Unknown us Historical Provider LAB BLOOD ORDERABLES Shahida l Result * Colonoscopy (02/15/2018) HM Colonoscopy no interpretation , abstracted Anatomical Region Laterality Modality Other us Historical Provider HEALTH MAINTENANCE Final Result from Last 3 Months or Most Recently Relevant to Health Maintenance Insurance [employer] [facility] Care Teams Poultry Packer Relationship Specialty Start Date End Date Main Story [address] [place] [address] PCP - General Internal Medicine 09/13/20
[2025-02-20 08:51] VITALS: BP 90/64; PULSE 78; RESP 18; TEMP 36.6; O2SAT 98; BMI 25.8
--- NOTE | 2025-02-20 08:51 | MHC.PC.OV ---
Vital Signs 02/20/25 08:51 Height 5 ft 10 in Intake Visit Reasons: EP-b/l shoulder pain and lumbar back pain Allergies No Known Allergies Allergy (Verified 08/20/24 10:24) PFSH Medical History (Updated 12/02/24 @ 11:18 by Florina Cronin [facility]) GERD (gastroesophageal reflux disease) Depression Migraine without aura Social History Patient Tobacco Use Status: Never used Tobacco Physical exam (Primary Care) Tobacco/Smoking Status: Tobacco use Status Patient Tobacco Use Status Never used Tobacco 08/20/24 10:19 Coding
--- NOTE | 2025-02-20 09:00 | MHC.OFFWIV ---
Intake Vital Signs 02/20/25 08:51 Height 5 ft 10 in Weight 180 lb BMI 25.8 BP 90/64 Blood Pressure Location Lt brachial Position Sitting Respiration 18 Pulse 78 Pulse Source Pulse Oximeter Temp 97.8 F Temp Source Oral Pulse Oximetry (%) 98 Oxygen Delivery Method Room Air Intake Visit Reasons: EP-b/l shoulder pain and lumbar back pain Patient Tobacco Use Status: Never used Tobacco Allergies No Known Allergies Allergy (Verified 02/20/25 09:01) HPI HPI Comments History of Present Illness Details 50 y/o Male patient who presents to the walk in clinic with c/o chronic Lower back pain radiating down to both his LE Since Thursday. Reports chronic Back pain - he did injure his back 2003 at work. He had MRI many years ago that showed Disk Bulgind at L1 - S2. He does take Tizanidine 2 - 4mg Twice a Day with no relief. He has tried Acetaminophen, Ibuprofen and Lidocaine patches with no relief. In the past he was successful with Steroid Back injections and Today wondering if we could give him a dose. Reports that pain worse with movement, bending or going up/down stairs. Denies numbness or tingling. Denies bowel or bladder symptoms. [facility] Medical History (Updated 02/20/25 @ 09:48 by Yen Whitlock NP) Lumbago with sciatica GERD (gastroesophageal reflux disease) Depression Migraine without aura Social History Patient Tobacco Use Status: Never used Tobacco Review of Systems Const All systems reviewed & are unremarkable except as noted in HPI and below Physical Exam Vital Signs: Last Vital Signs Temp 97.8 F 02/20/25 08:51 Pulse 78 02/20/25 08:51 Resp 18 02/20/25 08:51 BP 90/64 02/20/25 08:51 Pulse Ox 98 02/20/25 08:51 Oxygen Delivery Method Room Air 02/20/25 08:51 BMI result Body Mass Index 25.8 Const General: no acute distress; No comfortable Nutritional Appearance: well nourished Orientation/consciousness: patient oriented x3 Back/Spine/Pelvis Back: back tenderness Thoracic/Lumbar Spine: pain with thoraco-lumbar ROM, paraspinal muscle tenderness and lumbar spinal tenderness at L1, at L2, at L3, at L4 and at L5 Neuro Other: Walks with a limp due to pain. General: patient oriented x3 and moves all extremities Psych Speech and movement: Normal speech and movement present Assessment & Plan Assessment & Plan (1) Lumbago with sciatica: Code(s): M54.40 - Lumbago with sciatica, unspecified side Qualifiers: Chronicity: chronic Back pain laterality: midline Sciatica laterality: bilateral sciatica Qualified Code(s): M54.41 - Lumbago with sciatica, right side; M54.42 - Lumbago with sciatica, left side; G89.29 - Other chronic pain Plan: Advised to use Ice/Hot Ordered Diclofenac for pain relief Advised him to [facility]. Medications: New diclofenac potassium 50 mg PO BID 14 tabs 0RF 7 days G89.29 - Other chronic pain, M54.41 - Lumbago with sciatica, right side, M54.42 - Lumbago with sciatica, left side Coding Level of Care Code Est Pt Level 4 (07507) Diagnoses Chronic midline low back pain with bilateral sciatica M54.41; M54.42; G89.29 Chronicity: chronic Back pain laterality: midline Sciatica laterality: bilateral sciatica Time Spent (min) 20
== END 2025-02-20 09:48 | disposition home or self-care (01) ==
PROVIDERS: PCP Physician Assistant Medical; Visit Provider Nurse Practitioner Family
DX: M54.41 Lumbago with sciatica, right side (principal); M54.42 Lumbago with sciatica, left side; G89.29 Other chronic pain

== ENCOUNTER 2025-03-07 15:24 | Outpatient (AMB) | payer OTHER, SELFPAY ==
--- NOTE | 2025-03-07 15:43 | A.OFFVIS_ITS ---
Intake Visit Reasons: 6m Allergies No Known Allergies Allergy (Verified 03/07/25 15:47) Medication List - Last Reconciled 03/07/25 by Magui Edward CNP albuterol sulfate 90 mcg/actuation inhalation bupropion HCl XL 150 mg PO QAM [id number]-odqatjosuegrr-uuss 50-325-40 mg 1 tab PO BID PRN cetirizine 10 mg PO DAILY PRN citalopram 20 mg PO DAILY dextrin (Clear Fiber) PO diclofenac potassium 50 mg PO BID 7 days divalproex ER 250 mg PO DAILY 90 days fluticasone furoate-vilanterol 100-25 mcg/dose (Breo Ellipta) 1 ea inhalation DAILY lidocaine 5% 1 patch topical DAILY [place] oleifera mg PO DAILY omeprazole 20 mg PO BID rizatriptan mg PO sumatriptan succinate take 1 tab at onset of headache; if no relief may repeat 1 tab after at least 2 hrs; max = 4 tabs/24 hr PO tizanidine 2 mg PO DAILY PRN HPI Comments Details: 49 y/o man with depression, GERD and migraine headaches. He was having more headaches over the last few months. Headaches were happening more often, about 3x/week, but were not as severe as before. He was using seven triptan or rizatriptan or butalbital as needed which helped some. He preferred sumatriptan to rizatriptan, but butalbital as needed seemed to work best. Sleep was okay. [facility] Medical History (Updated 03/07/25 @ 15:44 by Magui Edward CNP) Lumbago with sciatica GERD (gastroesophageal reflux disease) Depression Migraine without aura Social History Patient Tobacco Use Status: Never used Tobacco Review of Systems Const Denies chills, Denies daytime sleepiness, Reports difficulty sleeping, Denies fatigue, Denies fever(s), Denies frequent falls, Reports headache(s), Denies increased appetite, Denies poor appetite, Denies snoring, Denies weakness, Denies weight gain and Denies weight loss Eyes Denies loss of vision ENT Denies vertigo, Denies dizziness and Reports headache(s) Card Denies chest pain at rest, Denies chest pain with activity, Denies syncope, Denies leg edema and Denies palpitations Resp Denies snoring GI Denies constipation, Denies heartburn, Denies diarrhea and Denies nausea Denies urinary frequency, Denies urinary incontinence and Denies urinary urgency Musc Denies abnormal gait, Denies numbness and Denies tingling Skin/Breast Denies dry skin and Denies rash Neuro Denies abnormal gait, Denies vertigo, Denies dizziness, Denies syncope, Denies frequent falls, Reports headache(s), Denies lack of coordination, Denies loss of vision, Denies memory loss, Denies numbness, Denies restless legs, Denies seizure-like activity, Denies tingling, Denies paresthesias, Denies tremor(s) and Denies weakness Psych Denies anxiety, Denies depression, Denies auditory hallucinations, Denies memory loss, Denies visual hallucinations and Denies suicidal ideation Endo Denies fatigue and Denies palpitations Physical Exam Const Other: General Appearance:? normal, in no acute distress. Skin:? no rashes, no significant birthmarks. Heart:? S1, S2 normal, no murmurs. Lungs:? clear anteriorly and posteriorly. Extremities:? no edema. Psych:? alert, oriented, cognitive function intact, cooperative with exam. Neuro Other: Mental Status:?Normal attention, orientation, memory and affect.? Cranial Nerves:?Pupils are equal, round and reactive to light. External occular muscles are intact. Visual mcleod are full. Face is symmetrical. Facial sensations are normal. Tongue is midline. Palate elevates symmetrically. Shoulder shrugging is normal. Hearing to bedside conversation is normal. Sensory Exam:?....? Coordination:?No ataxia,?no titubation.? Gait Exam: Within normal limits. Extrapyramidal System:?No tremor, rigidity with normal facial expressions.? Pronator Drift:?Not present.? Involuntary Movements:?No tremors seen.? Speech:?Normal.? Assessment & Plan Assessment & Plan (1) Migraine without aura: Code(s): G43.009 - Migraine without aura, not intractable, without status migrainosus Category: Medical Qualifiers: Status migrainosus presence: without status migrainosus Intractability: not intractable Qualified Code(s): G43.009 - Migraine without aura, not intractable, without status migrainosus Plan: Increase Depakote ER 250mg 1 tablet twice a day. Start sumatriptan 50mg 1 tablet as needed for migraine. Continue [id number]-WBXY-flud 50-325-40mg 1-2 tablets as needed for headache #10 for 30 days. Do not use as needed medications (including OTC analgesics) more than 2-3x/week. Plan Meds tried: propranalol, sumatriptan, amitryptiline, fiorecet, flexeril, topamax, verapamil Medications: New sumatriptan succinate take 1 tab at onset of headache; if no relief may repeat 1 tab after at least 2 hrs; PO 10 tabs 5RF 30 days Changed From dlufzsauwj-lbahiupnuqxpa-bmdo 50-325-40 mg 1 tab PO BID PRN To gyvldxyltg-vjppatvmgkzwd-beqx 50-325-40 mg 1 tab PO DAILY PRN 10 tabs 2RF headache 30 days From divalproex ER 250 mg PO DAILY 90 days 90 tabs 1RF To divalproex ER 250 mg PO BID 180 tabs 1RF 90 days Coding Level of Care Code Est Pt Level 4 (80045) Diagnoses Migraine without aura and without status migrainosus, not intractable G43.009 Status migrainosus presence: without status migrainosus Intractability: not intractable
--- OUTSIDE RECORDS SUMMARY | 2025-03-07 19:47 | XMS_ITS | Data Portability ---
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 Plan of Treatment Reminders Order Date Submit Date Provider Last Modified By Organization Details Last Modified Time Details Appointments None recorded. Lab None recorded. Referral occupatio nal therapist referral - RIGHT LATERAL EPICONDYL AR DEBRIDEME NT SX 04/19/24 ACTIVE ROM AVOID STRAINING OF ELBOW 2023 024 [email or web address] Not available 11:10:59 Procedures None recorded. Surgeries None recorded. Imaging None recorded. Medication Orders None recorded. Patient TargetsNo targets recorded. Patient InstructionsNo instructions recorded. Reason for Referral Occupational Therapist Refer ral for Right lateral elbow tendinopathy RIGHT LATERAL EPICONDYLAR DEBRIDEMENT SX 04/19/24ACTIVE ROM AVOID STRAINING OF ELBOW Referring Physician: Kimberly Felder, Orthopedic Surgery, Encounter Date: 04/29/2024 Procedures Surgical History Date Name Laterality Status Provider Name and Address Organization Details Recorded Time 04/19/20 Elbow Surgery completed RICHELLE FORRESTER [facility] 06/29/2024 10:15:40 12/14/19 24 JZCelestone Lat Epi completed Kj Self MD [address] [facility] [address], [place], [address], [facility] 12/16/2023 07:57:51 11/22/19 14 Shoulder Surgery completed RICHELLE FORRESTER [facility] 06/29/2024 10:15:40 Hand Surgery completed RICHELLE FORRESTER [place] - [facility] 06/29/2024 10:15:40 Imaging Results [...] Updated DateTime 06/29/2024 177.8 cm 25.1 kg/m2 50341.66 g RICHELLEElton MARIEFORRESTER [facility] 06/29/2024 10:15:47 Date Recorded Body height Body mass index (BMI) Body weight Provider Name and Address Organization Details Last Updated DateTime 07/29/2024 177.8 cm 25.1 kg/m2 37371.66 ari RICHELLE FORRESTER [facility] 07/29/2024 11:21:58 Date Recorded Body height Body mass index (BMI) Body weight Provider Name and Address Organization Details Last Updated DateTime 2024 177.8 cm 25.1 kg/m2 35879.66 g VIANEY CHI [facility] 2024 13:36:54 Date Recorded Body height Body mass index (BMI) Body weight Provider Name and Address Organization Details Last Updated DateTime 03/18/2024 177.8 cm 25.1 kg/m2 62158.66 g RICHELLE FORRESTER [facility] 03/18/2024 14:16:18 Date Recorded Body height Body temperature Body mass index (BMI) Body weight Provider Name and Address Organization Details Last Updated DateTime 04/29/2024 177.8 cm 98.3 [degF] 25.1 kg/m2 90567.66 g KHANH CARROLL [facility] 04/29/2024 09:22:04 Social History Question Answer Notes LastModified by 911 View Details LastModified Time Tobacco Smoking Status Never Smoker RICHELLE chung [facility] 06/29/2024 10:15:40 What Is Your Relationship Status? [email or web address] Information not available 06/29/2024 Sex: Unknown Functional Status Question Answer Note LastModified by [employer] Details LastModified Time How many times per week do you consume alcohol? Less than 1 time per week [email or web address] Information not available 06/29/2024 Do you use any illicit or recreational drugs? No [email or web address] Information not available 06/29/2024 Do you or have you ever used any other forms of tobacco or nicotine? No [email or web address] Information not available 06/29/2024 Do you or have you ever used e-cigarettes or vape? Never used electronic cigarettes [email or web address] Information not available 06/29/2024 Mental Status None recorded. Family History Nothing Reported. Medical History No medical history recorded. Past Encounters Encounter ID Performer Location Encounter Start Date Encounter Closed Date Diagnosis/Indication Diagnosis SNOMED-CT Code Diagnosis ICD10 Code Diagnosis IMO Codes Diagnosis Note [id number] Kj Self MD [facility] [address] [place] [address] 12/14/2023 14:26:37 01/08/2024 09:57:48 Pain of right elbow joint 3704160367 4092473 M25.521 Right late ral elbow tendinopathy 0259696785 10816 M77.11 [id number] Abhinav Stahl PA-C [facility] [address] [place] [address] 2024 13:25:00 03/04/2024 09:32:36 [id number] MD [facility] [address] [place] [address] 03/18/2024 14:08:29 04/17/2024 17:02:36 Right lateral elbow tendinopathy 5843929733 40833 M77.11 [id number] Kimberly Felder, [facility] [address] [place] [address] 04/29/2024 08:54:44 05/24/2024 11:10:59 Right lateral elbow tendinopathy 9643034024 06350 M77.11 [id number] MD RA Donahue [facility] [address] [place] [address] 06/29/2024 09:47:41 07/20/2024 16:46:35 Right lateral elbow tendinopathy 0673854169 57723 M77.11 [id number] MD RA Donahue [facility] [address] [place] [address] 07/29/2024 11:10:09 08/17/2024 14:59:30 Right lateral elbow tendinopathy 3098429153 87612 M77.11 [id number] Health Concerns Section Related Observation LastModified by Organization Detdaniel ls LastModified Time None Recorded Concern Status LastModified by Organization Details LastModified Time None Recorded Advance Directives Directive None Recorded Payers Insurance Date Sequence Insurance Name Policy Number Policy Arce Covered Member ID Arce Member ID Guarantor Name 12/04/2023 PARVEEN Elkins Notes Date Note Type Note Provider Name and Address Organization Details Recorded Time 2024 text/html I am seeing the patient today under the supervision of dr noble who was available but who did not see the patient. DX: Right Lateral epicondylitis s/p cortisone injection 12/14/2023ortisone injectioin at [place] 05/2023 HPI: 48-year-old male returns for reexamination. [...] reviewed, updated and is located in the patient s chart. Examination: Alert and oriented 3. No acute distress. Nonantalgic gait.Right Elbow reveals [...] elbow. X-rays ordered, obtained and reviewed at [facility] Impression/Plan: Findings and situation were discussed with the patient. Treatment options were discussed. Patient is going to check with Worker's Compensation to see if they cover PRP injections. If not he would like to proceed with a left lateral patellar debridement. He will continue with work restrictions. Abhinav Stahl PA-C [address], [place], [address], [facility] 2024 13:53:58 03/18/2024 text/html ROS as noted in the HPI Diagnosis: Right lateral epicondylitisThe patient presents at his request. He continues to have pain over his right lateral elbow with grasp. The pain is sharp and moderate in severity. He has no numbness or tingling.Past family, medical, social history and review of systems has been reviewed, updated and is located in the patient s chart.Examination: Healthy appearing patient in no [...] lateral epicondylar debridement. Kj Self MD [address], [place], [address], [facility] 03/18/2024 15:12:46 04/29/2024 text/html ROS as noted in the HPI Patrick is a 49-year-old who is here today for follow-up status post right lateral epicondylar debridement done by Dr. Self 04/19/2020 for overall he is progressing nicely good pain she is here today for follow-up Kimberly Felder CNP [address], [place], [address], [facility] 04/29/2024 10:12:54 06/29/2024 text/html ROS as noted in the HPI Diagnosis: Status post right lateral epicondylar debridement The patient returns at our request. He is disappointed in the results of his surgery. He continues to have pain over his lateral elbow although improved from his preoperative status. Past family, medical, social history and review of systems has been reviewed, updated and is located in the patient s chart. Examination: Healthy appearing patient in [...] are any concerns. Kj Self MD [address] [address], [place], [address], [facility] 07/04/2024 09:40:25 07/29/2024 text/html ROS as noted in the HPI Diagnosis: Status post right lateral epicondylar debridement The patient returns at our request. He reports that he has had a dramatic improvement in his situation and is ready to return to full duty work. Past family, medical, social history and review of systems has been reviewed, updated and is located in the patient s chart. Examination: Healthy appearing patient in [...] at his discretion. Kj Self MD [address] [facility] [address], [place], [address], [facility] 07/29/2024 12:41:34
--- OUTSIDE RECORDS SUMMARY | 2025-03-07 19:47 | XMS_ITS | Clinical Summary ---
Author Organization [facility] Address [address] [place] [address] Care Team Providers Care Academic Advisor Name Role Phone Main Story Primary Care Provider [phone] Allergies Active Allergy Reactions Criticality Noted Date [...] and thickening right maxillary sinus Follows with [facility] Immunizations Immunization Administration Dates Next Due Anthrax 12/30/2003, 4,09/23/2002,04/16,09/28/1999,09/14/1999 DTP 07/09/1977 Hepatitis A Adult (Havrix; V aqta) 19yo and older 01/04/2000,05/18/1999 Hepatitis B (Iyorvvy-X-Lcvwm , Recombivax HB-Adult) 19yo and older 05/22/2012,12/20/2011,08/11/2011 [...] free 08/19/2020,07/22/2020 OPV 11/08/1992,07/09/1977 PPD Test 11/08/1984 Snapverse SARS-CoV-2 COVID-19, mRNA, LNP-S, preservative free 07/21/2021 Smallpox 07/17/2002 Td Tetanus diptheria (Tdvax) 7yo and older 12/20/2011,10/09/1998,11/08/1992,11/08 Typhoid VICPS (Typhim Vi) 2y o and older 12/30/2003,10/30/2001,09/14/1999,10/09 Yellow Fever (YF-VAX) 9mo and older 08/09/1993 Surgical History Surgery Date Site/Laterality Comments HAND SURGERY PROCEDURE: HISTORICAL HAND SURGERY; COMMENT: right z plasty VASECTOMY PROCEDURE: AL VASECTOMY UNI/BI SPX W/POSTOP SEMEN EXAMS OTHER [...] Most Recently Relevant to Health Maintenance Insurance [employer] Care Teams Academic Advisor Relationship Specialty Start Date End Date Main Story PA [address] [place] [address] PCP - General Internal Medicine 09/13/20
== END 2025-03-07 16:02 | disposition home or self-care (01) ==
LOC: HO.HSM 15:24
PROVIDERS: PCP Physician Assistant Medical; Referring Provider Physician Assistant Medical; Visit Provider Registered Nurse
DX: G43.009 Migraine without aura, not intractable, without status migrainosus (principal)
CPT/HCPCS: 99214